=== PATIENT | female | born 1980 | race American Indian/Alaskan Native ===

== ENCOUNTER 2017-01-14 06:40 | Emergency (ER) | payer MEDICAID ==
[2017-01-14 08:10] LABS: Basophils % (Auto) 0.9 % (0.0-1.8); Eosinophils % (Auto) 2.4 % (0.0-4.3); Hemoglobin 11.2 gm/dl (10.1-14.3); Mean Corpuscular HGB Conc 31 % (30-34); Mean Corpuscular Volume 78 fl (79-97); Platelet Count 247 K/mm3 (140-440); Red Cell Distribution Width 16.8 % (13.2-15.2); White Blood Count 8.3 K/mm3 (4.5-11.0)
[2017-01-14 08:21] LABS: Alanine Aminotransferase 21 units/L (7-56); Albumin 3.8 g/dL (3.9-5); Albumin/Globulin Ratio 1.1 %; Alkaline Phosphatase 49 units/L (35-129); Anion Gap 20 mmol/L; Bilirubin,Total 0.2 mg/dL (0.1-1.2); Blood Urea Nitrogen 7 mg/dL (7-17); Calcium 8.9 mg/dL (8.4-10.2); Carbon Dioxide 24 mmol/L (22-30); Chloride 99.3 mmol/L (98-107); Glucose 166 mg/dL (65-100); Lipase 38 units/L (13-60); Potassium 3.6 mmol/L (3.6-5.0); Sodium 140 mmol/L (137-145); Total Protein 7.4 g/dL (6.3-8.2)
[2017-01-14 08:43] LABS: Mean Corpuscular Hemoglobin 25 pg (28-32)
[2017-01-14 08:51] LABS: Bacteria,Urine 4+ /HPF (Negative); Bilirubin,Urine NEG (Negative); Blood,Urine NEG (Negative); Ketones,Urine NEG (Negative); Leukocyte Esterase,Urine MOD (Negative); Mucus,Urine 2+ /HPF; Nitrite,Urine POS (Negative); Urobilinogen,Urine < 2.0 mg/dL (<2.0)
--- NOTE | 2017-01-14 12:53 | Emergency Department Report ---
ED Abdominal Pain HPI - General Chief Complaint: Abdominal Pain Stated Complaint: ABD/BACK PAIN Time Seen by Provider: 01/14/17 12:50 Source: patient Mode of arrival: Ambulatory Limitations: No Limitations - History of Present Illness Initial Comments: The patient complains of abdominal pain of one month's duration. She states it is sometimes associated with nausea but not vomiting. She denies any postprandial component of the pain itself although she does have some fatty food intolerance. She is status post a cholecystectomy. She has had multiple C -sections and a tubal ligation. She denies any recent fever or chills. Patient describes the pain as sharp and predominantly in the right upper quadrant of the abdomen but sometimes in both left and right lower quadrant of the abdomen. She states that she went to [facility] ([place]). She states that she was told she had reflux and prescribed medicine after having a urine test and blood work performed. She denies having any imaging. She states the pain has been sharp and constant for one month. MD Complaint: abdominal pain -: month(s) Location: RUQ Radiation: LLQ, RLQ Migration to: no migration Severity: moderate Quality: aching Consistency: constant Improves With: nothing Worsens With: nothing Associated Symptoms: nausea - Related Data Home Medications Medication Instructions Recorded Confirmed Last Taken Lisinopril/Hydrochlorothiazide 1 tab PO DAILY 02/01/14 08/20/15 08/19/15 08:00 [Zestoretic 20-12.5 mg] Ferrous Sulfate [Feosol] 325 mg PO TID 08/20/15 08/20/15 08/19/15 20:00 Ranitidine HCl [Zantac 150 MG TAB] 150 mg PO BID 08/20/15 08/20/15 08/19/15 20: 00 Previous Rx's Medication Instructions Recorded Last Taken Type Naproxen [Naprosyn TAB] 500 mg PO BID #30 tablet 08/20/15 Unknown Rx Promethazine Dm [Phenergan Dm 5 ml PO Q6H PRN 7 Days 08/20/15 Unknown Rx 6.25/15 mg 5 ml] Ibuprofen [Motrin] 600 mg PO Q8H PRN #20 tablet 12/23/15 Unknown Rx Sulfamethoxazole/Trimethoprim 1 each PO BID #14 tablet 12/23/15 Unknown Rx [Bactrim DS TAB] Nitrofurantoin [place]/M-Cryst 100 mg PO Q12HR #14 capsule 01/27/16 Unknown Rx [Macrobid CAP] Promethazine [Phenergan TAB] 25 mg PO Q6HR PRN #16 tab 01/27/16 Unknown Rx Sulfamethoxazole/Trimethoprim 1 each PO BID #10 tablet 04/02/16 Unknown Rx [Bactrim DS TAB] Ketorolac [Toradol] 10 mg PO Q6H PRN #20 tablet 04/03/16 Unknown Rx Atenolol [Tenormin] 25 mg PO DAILY #30 tab 07/09/16 Unknown Rx predniSONE [Deltasone] 20 mg PO QDAY #5 tab 07/09/16 Unknown Rx Nitrofurantoin [place]/M-Cryst 100 mg PO Q12HR #10 capsule 01/14/17 Unknown Rx [Macrobid CAP] traMADol [Ultram 50 MG tab] 50 mg PO Q4HR PRN #14 tablet 01/14/17 Unknown Rx Allergies Allergy/AdvReac Type Severity Reaction Status Date / Time hydrocodone bitartrate Allergy Rash Verified 01/14/17 13:22 [From Vicodin] lisinopril Allergy Swelling Verified 01/14/17 13:22 tea Allergy Rash Uncoded 02/24/15 10:25 ED Review of Systems ROS: Stated complaint: ABD/BACK PAIN Other details as noted in HPI Constitutional: denies: chills, fever Eyes: denies: eye pain, eye discharge, vision change ENT: denies: ear pain, throat pain Respiratory: denies: cough, shortness of breath, wheezing Cardiovascular: denies: chest pain, palpitations Endocrine: no symptoms reported Gastrointestinal: abdominal pain, nausea. denies: diarrhea Genitourinary: denies: urgency, dysuria, discharge Musculoskeletal: denies: back pain, joint swelling, arthralgia Skin: denies: rash, lesions Neurological: denies: headache, weakness, paresthesias Psychiatric: denies: anxiety, depression Hematological/Lymphatic: denies: easy bleeding, easy bruising ED Past Medical Hx - Past Medical History Previous Medical History?: Yes Hx Hypertension: Yes Hx Diabetes: ("borderline") Hx GERD: Yes Additional medical history: Anemia. HEART MURMUR. TACHYCARDIA. TUBAL LIGATION. Fibromyalgia - Surgical History Past Surgical History?: Yes Hx Cholecystectomy: Yes Additional Surgical History: 4 c sections / one d&c - Social History Smoking Status: Never Smoker Substance Use Type: None - Medications Home Medications: Home Medications Medication Instructions Recorded Confirmed Last Taken Type Lisinopril/Hydrochlorothiazide 1 tab PO DAILY 02/01/14 08/20/15 08/19/15 08:00 History [Zestoretic 20-12.5 mg] Ferrous Sulfate [Feosol] 325 mg PO TID 08/20/15 08/20/15 08/19/15 20:00 History Naproxen [Naprosyn TAB] 500 mg PO BID #30 tablet 08/20/15 Unknown Rx Promethazine Dm [Phenergan Dm 5 ml PO Q6H PRN 7 Days 08/20/15 Unknown Rx 6.25/15 mg 5 ml] Ranitidine HCl [Zantac 150 MG TAB] 150 mg PO BID 08/20/15 08/20/15 08/19/15 20: 00 History Ibuprofen [Motrin] 600 mg PO Q8H PRN #20 tablet 12/23/15 Unknown Rx Sulfamethoxazole/Trimethoprim 1 each PO BID #14 tablet 12/23/15 Unknown Rx [Bactrim DS TAB] Nitrofurantoin [place]/M-Cryst 100 mg PO Q12HR #14 capsule 01/27/16 Unknown Rx [Macrobid CAP] Promethazine [Phenergan TAB] 25 mg PO Q6HR PRN #16 tab 01/27/16 Unknown Rx Sulfamethoxazole/Trimethoprim 1 each PO BID #10 tablet 04/02/16 Unknown Rx [Bactrim DS TAB] Ketorolac [Toradol] 10 mg PO Q6H PRN #20 tablet 04/03/16 Unknown Rx Atenolol [Tenormin] 25 mg PO DAILY #30 tab 07/09/16 Unknown Rx predniSONE [Deltasone] 20 mg PO QDAY #5 tab 07/09/16 Unknown Rx Nitrofurantoin [place]/M-Cryst 100 mg PO Q12HR #10 capsule 01/14/17 Unknown Rx [Macrobid CAP] traMADol [Ultram 50 MG tab] 50 mg PO Q4HR PRN #14 tablet 01/14/17 Unknown Rx ED Physical Exam - General Limitations: No Limitations General appearance: alert, in no apparent distress, obese - Head Head exam: Present: atraumatic, normocephalic - Eye Eye exam: Present: normal appearance. Absent: scleral icterus - ENT ENT exam: Present: mucous membranes moist - Neck Neck exam: Present: normal inspection - Respiratory Respiratory exam: Present: normal lung sounds bilaterally. Absent: respiratory distress - Cardiovascular Cardiovascular Exam: Present: regular rate, normal rhythm. Absent: systolic murmur, diastolic murmur, rubs, gallop - GI/Abdominal GI/Abdominal exam: Present: soft, normal bowel sounds. Absent: distended, tenderness, guarding, rebound, rigid, organomegaly, mass, bruit, pulsatile mass , hernia - Extremities Exam Extremities exam: Present: normal inspection - Back Exam Back exam: Present: normal inspection - Neurological Exam Neurological exam: Present: alert, oriented X3, CN II-XII intact. Absent: motor sensory deficit - Psychiatric Psychiatric exam: Present: normal affect, normal mood - Skin Skin exam: Present: warm, dry, intact, normal color. Absent: rash ED Course Vital Signs 01/14/17 01/14/17 01/14/17 07:14 12:35 12:37 Temperature 98.3 F 98.7 F Pulse Rate 118 H 105 H Respiratory 18 16 Rate Blood Pressure 153/104 Blood Pressure 166/106 [Right] O2 Sat by Pulse 100 100 100 Oximetry 01/14/17 14:07 Temperature Pulse Rate 78 Respiratory Rate Blood Pressure 162/109 Blood Pressure [Right] O2 Sat by Pulse Oximetry - Reevaluation(s) Reevaluation #1: Records indicates that the patient had a CT in 2015. Nothing acute showed up then. The current CT as well shows no acute process. Possible ovarian cysts 01/14/17 16:24 ED Medical Decision Making - Lab Data Result diagrams: 01/14/17 07:35 01/14/17 07:35 Laboratory Results - last 24 hr 01/14/17 01/14/17 01/14/17 07:35 07:35 08:01 WBC 8.3 RBC 4.60 Hgb 11.2 Hct 36.0 MCV 78 L MCH 25 L MCHC 31 RDW 16.8 H Plt Count 247 Lymph % (Auto) 32.8 [place] % (Auto) 8.6 H Eos % (Auto) 2.4 Baso % (Auto) 0.9 Lymph # 2.7 [place] # 0.7 Eos # 0.2 Baso # 0.1 Seg Neutrophils % 55.3 Seg Neutrophils # 4.6 Sodium 140 Potassium 3.6 Chloride 99.3 Carbon Dioxide 24 Anion Gap 20 BUN 7 Creatinine 0.7 Estimated GFR > 60 BUN/Creatinine Ratio 10.00 Glucose 166 H Calcium 8.9 Total Bilirubin 0.2 AST 27 ALT 21 Alkaline Phosphatase 49 Total Protein 7.4 Albumin 3.8 L Albumin/Globulin Ratio 1.1 Lipase 38 Urine Color Yellow Urine Turbidity Cloudy Urine pH 5.0 Ur Specific Dennis 1.018 Urine Protein 30 mg/dl Urine Glucose (UA) Neg Urine Ketones Neg Urine Blood Neg Urine Nitrite Pos Urine Bilirubin Neg Urine Urobilinogen < 2.0 Ur Leukocyte Esterase Mod Urine WBC (Auto) 21.0 H Urine RBC (Auto) 5.0 U Epithel Cells (Auto) 17.0 H Urine Bacteria (Auto) 4+ Urine Mucus 2+ Urine HCG, Qual Negative Critical care attestation.: If time is entered above; I have spent that time in minutes in the direct care of this critically ill patient, excluding procedure time. ED Disposition Clinical Impression: Abdominal pain Qualifiers: Abdominal location: generalized Qualified Code(s): R10.84 - Generalized abdominal pain UTI (urinary tract infection) Qualifiers: Urinary tract infection type: site unspecified Hematuria presence: without hematuria Qualified Code(s): N39.0 - Urinary tract infection, site not specified Ovarian cyst Qualifiers: Laterality: bilateral Qualified Code(s): N83.201 - Unspecified ovarian cyst, right side; N83.202 - Unspecified ovarian cyst, left side Disposition: DISCHARGED TO HOME OR SELFCARE Is pt being admited?: No Does the pt Need Aspirin: No Condition: Stable Instructions: Abdominal Pain (ED), Urinary Tract Infection in Women (ED), Ovarian Cyst (ED) Additional Instructions: Follow-up with a optimization analyst would be recommended. Also he may follow-up with the [facility] clinic. See referrals. Rx antibiotics and vacation for pain. Return any acute change or problem. Prescriptions: Nitrofurantoin [place]/M-Cryst [Macrobid CAP] 100 mg PO Q12HR #10 capsule traMADol [Ultram 50 MG tab] 50 mg PO Q4HR PRN #14 tablet PRN Reason: Pain Referrals: ANA MARIA SOLANO III, [employer] [Primary Care Provider] - 3-5 Days [facility] [Provider Group] - 3-5 Days Time of Disposition: 16:28
[2017-01-14] MEDS ORDERED: NORMODYNE IV ONE (13:03)
[2017-01-14] MEDS ORDERED: NACL ONE ×2 (13:05→14:58)
--- NOTE | 2017-01-14 16:14 | Cat Scan Report ---
FINAL REPORT EXAM: CT ABDOMEN PELVIS W CON HISTORY: ruQ and lower ABD pain TECHNIQUE: CT of the abdomen and pelvis with IV contrast. Coronal and sagittal reconstructed imaging provided. PRIORS: None currently available. FINDINGS: ABDOMEN: Stomach: Unremarkable. Liver: Fatty. No distinct lesions. 25 cm. No abnormal enhancement. Gallbladder: Cholecystectomy. Spleen: Unremarkable. Pancreas: Unremarkable. Adrenals: Unremarkable. Kidneys: Subcentimeter low-attenuation lesion in the inferior left renal cortex is too small to accurately characterize but statistically probably represents a cyst. Symmetrical cortical enhancement and excretion of both kidneys. No distinct abnormal enhancement. No hydronephrosis. There is no abdominal aortic aneurysm. IVC is unremarkable. There is no periaortic or retroperitoneal adenopathy or mass. Mild to moderate stool. Terminal ileum is normal. Appendix is unremarkable. Large and small bowel loops do not demonstrate wall thickening or inflammatory changes. No obstructive pattern. No free air or free fluid. Diastasis recti. Broad-based protrusion with superimposed small fat containing umbilical hernia. No strangulation. PELVIS: Oval-shaped, low attenuation 2.4 cm lesion in the right adnexa may represent an ovary with ovarian cyst. A similar appearing lesion noted on the left side measuring 2.2 cm. Bladder is unremarkable. There is no pelvic mass or adenopathy. Inguinal regions are unremarkable. Bones: No suspicious osseous lesions on this limited examination of the skeleton. Metastatic disease better evaluated with bone scan. IMPRESSION: Fatty enlarged liver. Probable left renal cysts. Possible bilateral ovarian cysts. Further imaging with pelvic ultrasound may be helpful if clinically indicated.
[2017-01-14 17:00] VITALS: BP 144/91
== END 2017-01-14 17:14 | disposition home or self-care (01) ==
LOC: ED 06:40
DX: N39.0 Urinary tract infection, site not specified (principal); N83.201 Unspecified ovarian cyst, right side; I10 Essential (primary) hypertension; K21.9 Gastro-esophageal reflux disease without esophagitis; Z98.51 Tubal ligation status; Z90.49 Acquired absence of other specified parts of digestive tract; Z88.1 Allergy status to other antibiotic agents; Z91.09 Other allergy status, other than to drugs and biological substances; Z88.5 Allergy status to narcotic agent
CPT/HCPCS: 36415; 74177; 80053; 81001; 81025; 83690; 85025; 87086; 96374; 99284; Q9967

== ENCOUNTER 2017-03-02 17:36 | Emergency (ER) | payer MEDICAID ==
[2017-03-02 18:32] LABS: Anion Gap 22 mmol/L; BUN/Creatinine Ratio 13.33; Blood Urea Nitrogen 8 mg/dL (7-17); Carbon Dioxide 26 mmol/L (22-30); Chloride 92.5 mmol/L (98-107); Glucose 147 mg/dL (65-100); Potassium 3.8 mmol/L (3.6-5.0); Sodium 137 mmol/L (137-145)
[2017-03-02] MEDS ORDERED: MORPHINE IV ONE ×2 (19:08→21:10)
--- NOTE | 2017-03-02 19:10 | Emergency Department Report ---
HPI - General Chief Complaint: Chest Pain Time Seen by Provider: 03/02/17 18:48 - HPI HPI: This is a 36-year-old Afro-[place] female who presents to the emergency department, driving himself in to be seen, with complaint of a 2 to three-day history of generalized chest pain, shortness of breath and lower extremity swelling. She has a 1.5 week history of some nausea and abdominal discomfort. Patient presents with very elevated blood pressure and says she is normally compliant but did not take her blood pressure medications today. Her primary care doctor is a Dr. Gardiner but she has not seen them regarding her symptoms. She did not take anything for her symptoms prior to presentation. She has a past medical history of borderline diabetes, GERD, hypertension, anemia, tubal ligation, fibromyalgia. No recent travel or sick contacts at home. She denies any tobacco abuse or illicit drug use. ED Past Medical Hx - Past Medical History Previous Medical History?: Yes Hx Hypertension: Yes Hx Diabetes: Yes ("borderline") Hx GERD: Yes Additional medical history: Anemia. HEART MURMUR. TACHYCARDIA. TUBAL LIGATION. Fibromyalgia - Surgical History Past Surgical History?: Yes Hx Cholecystectomy: Yes Additional Surgical History: 4 c sections / one d&c - Social History Smoking Status: Never Smoker Substance Use Type: Prescribed - Medications Home Medications: Home Medications Medication Instructions Recorded Confirmed Last Taken Type Lisinopril/Hydrochlorothiazide 1 tab PO DAILY 02/01/14 08/20/15 08/19/15 08:00 History [Zestoretic 20-12.5 mg] Ferrous Sulfate [Feosol] 325 mg PO TID 08/20/15 08/20/15 08/19/15 20:00 History Naproxen [Naprosyn TAB] 500 mg PO BID #30 tablet 08/20/15 Unknown Rx Promethazine Dm [Phenergan Dm 5 ml PO Q6H PRN 7 Days 08/20/15 Unknown Rx 6.25/15 mg 5 ml] Ranitidine HCl [Zantac 150 MG TAB] 150 mg PO BID 08/20/15 08/20/15 08/19/15 20: 00 History Ibuprofen [Motrin] 600 mg PO Q8H PRN #20 tablet 12/23/15 Unknown Rx Sulfamethoxazole/Trimethoprim 1 each PO BID #14 tablet 12/23/15 Unknown Rx [Bactrim DS TAB] Nitrofurantoin [place]/M-Cryst 100 mg PO Q12HR #14 capsule 01/27/16 Unknown Rx [Macrobid CAP] Promethazine [Phenergan TAB] 25 mg PO Q6HR PRN #16 tab 01/27/16 Unknown Rx Sulfamethoxazole/Trimethoprim 1 each PO BID #10 tablet 04/02/16 Unknown Rx [Bactrim DS TAB] Ketorolac [Toradol] 10 mg PO Q6H PRN #20 tablet 04/03/16 Unknown Rx Atenolol [Tenormin] 25 mg PO DAILY #30 tab 07/09/16 Unknown Rx predniSONE [Deltasone] 20 mg PO QDAY #5 tab 07/09/16 Unknown Rx Nitrofurantoin [place]/M-Cryst 100 mg PO Q12HR #10 capsule 01/14/17 Unknown Rx [Macrobid CAP] traMADol [Ultram 50 MG tab] 50 mg PO Q4HR PRN #14 tablet 01/14/17 Unknown Rx ED Review of Systems ROS: Stated complaint: CHEST PAIN AND SWOLLEN LEGS Other details as noted in HPI Comment: All other systems reviewed and negative Constitutional: denies: chills, fever Eyes: denies: eye pain, eye discharge, vision change ENT: denies: ear pain, throat pain Respiratory: shortness of breath. denies: cough Cardiovascular: chest pain. denies: edema Gastrointestinal: abdominal pain, nausea. denies: vomiting Genitourinary: denies: urgency, dysuria, discharge Musculoskeletal: denies: back pain, joint swelling, arthralgia Skin: denies: rash, lesions Physical Exam - Physical Exam Vital Signs: Vital Signs 03/02/17 03/02/17 03/02/17 17:48 18:46 18:47 Temperature 98.3 F Pulse Rate 117 H Respiratory 22 Rate Blood Pressure 177/115 O2 Sat by Pulse 100 100 99 Oximetry 03/02/17 03/02/17 18:48 18:56 Temperature Pulse Rate 105 H Respiratory 15 22 Rate Blood Pressure 175/110 O2 Sat by Pulse 97 100 Oximetry Physical Exam: GENERAL: The patient is well-developed well-nourished. HEENT: Normocephalic. Atraumatic. Extraocular motions are intact. Patient has moist mucous membranes. Pupils equal reactive to light bilaterally. NECK: Supple. Trachea is midline. CHEST/LUNGS: Clear to auscultation. There is no respiratory distress noted. HEART/CARDIOVASCULAR: Regular. There is mild tachycardia. There is no gallop rub or murmur. ABDOMEN: Abdomen is soft, nontender. Patient has normal bowel sounds. There is no abdominal distention. Morbidly obese habitus. SKIN: Skin is warm and dry. There is nonpitting swelling of the bilateral lower extremities. NEURO: The patient is awake, alert, and oriented. The patient is cooperative. The patient has no focal neurologic deficits. The patient has normal speech. MUSCULOSKELETAL: There is no tenderness or deformity. There is no limitation range of motion. There is no evidence of acute injury. ED Course Vital Signs 03/02/17 03/02/17 03/02/17 17:48 18:46 18:47 Temperature 98.3 F Pulse Rate 117 H Respiratory 22 Rate Blood Pressure 177/115 O2 Sat by Pulse 100 100 99 Oximetry 03/02/17 03/02/17 18:48 18:56 Temperature Pulse Rate 105 H Respiratory 15 22 Rate Blood Pressure 175/110 O2 Sat by Pulse 97 100 Oximetry ED Medical Decision Making - Lab Data Result diagrams: 03/02/17 19:15 03/02/17 17:57 - EKG Data -: EKG Interpreted by Me EKG shows normal: sinus rhythm, axis, intervals, QRS complexes (Q waves to the septal leads), ST-T waves Rate: tachycardia (110 bpm) - EKG Data When compared to previous EKG there are: previous EKG unavailable Interpretation: other (sinus tachycardia, Q waves to the septal leads) - Radiology Data Radiology results: image reviewed interpreted by me: Chest x-ray did not show any acute process. Heart is normal shape and size. No effusions. No pneumothorax. No signs of pneumonia seen. - Medical Decision Making 36-year-old female presents with a few days of some chest pain, intermittent shortness of breath, lower extremity swelling. Her EKG did not show any signs of ST elevation NV. Chest x-ray did not show any pneumonia, pleural effusions or pneumothorax. Patient's labs were mostly unremarkable including negative troponins 2, a BNP less than 100 and a negative d-dimer. There was no signs of infection. The patient was given some DuoNeb treatment and doses of pain medication. However the patient says that the pain continued to return. For this reason I would consider keeping this patient for at least with her troponin but possibly even admission for cardio consultation. However the patient says that she had to leave emergently for a family emergency. She did have somewhat here to drive her since she was on narcotic pain medication. She understands that if she leaves with this continued chest pain that she may continue to have discomfort, could have underlying coronary artery disease, could have a heart attack, coma, disability or even . Despite the fact the patient says that she has to leave and signed out AGAINST MEDICAL ADVICE. She does know that she is able to return at any point if she changes her mind or if any acute distress. - Differential Diagnosis NV, CHF, PE, costochondritis, pneumonia Critical Care Time: No Critical care attestation.: If time is entered above; I have spent that time in minutes in the direct care of this critically ill patient, excluding procedure time. ED Disposition Clinical Impression: Leg edema Chest pain Qualifiers: Chest pain type: unspecified Qualified Code(s): R07.9 - Chest pain, unspecified Hypertension Qualifiers: Hypertension type: essential hypertension Qualified Code(s): I10 - Essential ( primary) hypertension Disposition: LEFT AGAINST MEDICAL ADVICE Is pt being admited?: No Condition: Stable Instructions: Chest Pain (ED), Leg Edema (ED), Hypertension (ED) Additional Instructions: Please return to the emergency department if you have any continued chest pain or you have any acute distress. I given you a referral for a local chalk machine operator , Dr. Antony. Referrals: ANA MARIA GARDINER III, APRN-BC [Primary Care Provider] - 3-5 Days FABIOLA ANTONY MD [Staff Physician] - 3-5 Days Forms: AMA Form Time of Disposition: 21:44
[2017-03-02 19:26] LABS: Hemoglobin 9.6 gm/dl (10.1-14.3); Mean Corpuscular HGB Conc 32 % (30-34); Mean Corpuscular Hemoglobin 25 pg (28-32); Mean Corpuscular Volume 79 fl (79-97); Platelet Count 128 K/mm3 (140-440); Red Blood Count 3.79 M/mm3 (3.65-5.03); Red Cell Distribution Width 18.6 % (13.2-15.2); White Blood Count 4.3 K/mm3 (4.5-11.0)
[2017-03-02 19:42] LABS: Alanine Aminotransferase 24 units/L (7-56); Albumin 3.6 g/dL (3.9-5); Alkaline Phosphatase 44 units/L (35-129); Bilirubin,Total < 0.20 mg/dL (0.1-1.2); Lipase 28 units/L (13-60); Total Protein 7.1 g/dL (6.3-8.2)
[2017-03-02 19:44] LABS: Bilirubin,Direct < 0.2 mg/dL (0-0.2)
[2017-03-02] MEDS ORDERED: NORMODYNE IV ONE (19:58)
[2017-03-02] MEDS ORDERED: DUONEB 0.5 MG-3 MG/3 ML SOLN IH ONE (19:58)
[2017-03-02 20:09] LABS: Bacteria,Urine 4+ /HPF (Negative); Bilirubin,Urine NEG (Negative); Blood,Urine LG (Negative); Ketones,Urine TR mg/dL (Negative); Leukocyte Esterase,Urine LG (Negative); Mucus,Urine 2+ /HPF; Nitrite,Urine POS (Negative); Urobilinogen,Urine < 2.0 mg/dL (<2.0)
[2017-03-02 20:16] LABS: RBC,Urine > 182.0 /HPF (0.0-6.0); WBC,Urine > 182.0 /HPF (0.0-6.0)
[2017-03-02 20:58] VITALS: BP 150/93
[2017-03-02] MEDS ORDERED: ROCEPHIN/NS 1 GM/50 ML 1 GM/50 ML BAG IV ONE (21:09)
--- NOTE | 2017-03-03 08:30 | XRay Report ---
PORTABLE CHEST INDICATION: Chest pain. COMPARISON: None similar. FINDINGS: Portable, frontal chest radiograph demonstrates normal cardiomediastinal silhouette. Slightly crowded lung markings. No focal consolidation, pleural effusions or CHF. Unremarkable bones. CONCLUSION: No acute disease. Thank you for the opportunity to participate in this patient's care.
== END 2017-03-02 21:59 | disposition left against medical advice (07) ==
LOC: ED 17:36
DX: R60.0 Localized edema (principal); R07.9 Chest pain, unspecified; I10 Essential (primary) hypertension; K21.9 Gastro-esophageal reflux disease without esophagitis; Z98.51 Tubal ligation status; Z90.49 Acquired absence of other specified parts of digestive tract
CPT/HCPCS: 36415; 71010; 80048; 80074; 81001; 83690; 83880; 84484; 85025; 85379; 93005; 93010; 94640; 96365; 96375; 96376; 99285; J0696; J2270

== ENCOUNTER 2017-03-03 19:27 | Emergency (ER) | payer MEDICAID ==
[2017-03-03 19:59] LABS: Basophils % (Auto) 0.6 % (0.0-1.8); Eosinophils % (Auto) 3.4 % (0.0-4.3); Hematocrit 32.9 % (30.3-42.9); Hemoglobin 10.2 gm/dl (10.1-14.3); Mean Corpuscular HGB Conc 31 % (30-34); Mean Corpuscular Volume 80 fl (79-97); Platelet Count 167 K/mm3 (140-440); Red Blood Count 4.12 M/mm3 (3.65-5.03); Red Cell Distribution Width 18.8 % (13.2-15.2); White Blood Count 4.3 K/mm3 (4.5-11.0)
[2017-03-03 20:00] LABS: Mean Corpuscular Hemoglobin 25 pg (28-32)
[2017-03-03 20:07] LABS: INR 1.09 (0.87-1.13)
[2017-03-03 20:08] LABS: Partial Thromboplastin Time 27.3 Sec. (24.2-36.6)
[2017-03-03 20:18] LABS: Anion Gap 24 mmol/L; BUN/Creatinine Ratio 8.57; Blood Urea Nitrogen 6 mg/dL (7-17); Calcium 8.8 mg/dL (8.4-10.2); Carbon Dioxide 23 mmol/L (22-30); Chloride 93.5 mmol/L (98-107); Glucose 280 mg/dL (65-100); Potassium 3.5 mmol/L (3.6-5.0); Sodium 137 mmol/L (137-145)
[2017-03-03] MEDS ORDERED: GLUCOPHAGE PO ONE (21:25)
[2017-03-03] MEDS ORDERED: TORADOL IM ONE (21:25)
[2017-03-03] MEDS ORDERED: VALIUM IM ONE (21:26)
--- NOTE | 2017-03-03 21:29 | Emergency Department Report ---
HPI - General Chief Complaint: Chest Pain Time Seen by Provider: 03/03/17 20:54 - HPI HPI: The patient is a 36-year-old female presents for evaluation of chest pain. The patient reports chest pain for the past 4 days, midsternal in location, 10/10 in severity, aching in quality, exacerbated with movement of the upper body and arms. The patient denies fever, trauma to the chest, neck pain, parasthesias, cough, hemoptysis, palpitations, dizziness, syncope, unilateral leg swelling, calf muscle pain. Patient also denies cocaine or other illicit stimulant use, history of DVT or PE, recent immobilization, recent surgery, recent cancer, or oral contraception use. ED Past Medical Hx - Past Medical History Previous Medical History?: Yes Hx Hypertension: Yes Hx Diabetes: Yes ("borderline") Hx GERD: Yes Additional medical history: Anemia. HEART MURMUR. TACHYCARDIA. TUBAL LIGATION. Fibromyalgia - Surgical History Past Surgical History?: Yes Hx Cholecystectomy: Yes Additional Surgical History: 4 c sections / one d&c - Social History Smoking Status: Never Smoker Substance Use Type: None - Medications Home Medications: Home Medications Medication Instructions Recorded Confirmed Last Taken Type Lisinopril/Hydrochlorothiazide 1 tab PO DAILY 02/01/14 08/20/15 08/19/15 08:00 History [Zestoretic 20-12.5 mg] Ferrous Sulfate [Feosol] 325 mg PO TID 08/20/15 08/20/15 08/19/15 20:00 History Naproxen [Naprosyn TAB] 500 mg PO BID #30 tablet 08/20/15 Unknown Rx Promethazine Dm [Phenergan Dm 5 ml PO Q6H PRN 7 Days 08/20/15 Unknown Rx 6.25/15 mg 5 ml] Ranitidine HCl [Zantac 150 MG TAB] 150 mg PO BID 08/20/15 08/20/15 08/19/15 20: 00 History Ibuprofen [Motrin] 600 mg PO Q8H PRN #20 tablet 12/23/15 Unknown Rx Sulfamethoxazole/Trimethoprim 1 each PO BID #14 tablet 12/23/15 Unknown Rx [Bactrim DS TAB] Nitrofurantoin [place]/M-Cryst 100 mg PO Q12HR #14 capsule 01/27/16 Unknown Rx [Macrobid CAP] Promethazine [Phenergan TAB] 25 mg PO Q6HR PRN #16 tab 01/27/16 Unknown Rx Sulfamethoxazole/Trimethoprim 1 each PO BID #10 tablet 04/02/16 Unknown Rx [Bactrim DS TAB] Ketorolac [Toradol] 10 mg PO Q6H PRN #20 tablet 04/03/16 Unknown Rx predniSONE [Deltasone] 20 mg PO QDAY #5 tab 07/09/16 Unknown Rx Nitrofurantoin [place]/M-Cryst 100 mg PO Q12HR #10 capsule 01/14/17 Unknown Rx [Macrobid CAP] traMADol [Ultram 50 MG tab] 50 mg PO Q4HR PRN #14 tablet 01/14/17 Unknown Rx Atenolol [Tenormin] 25 mg PO DAILY #30 tab 03/03/17 Unknown Rx Hydrochlorothiazide [HCTZ] 25 mg PO QDAY #30 tablet 03/03/17 Unknown Rx Metformin HCl [Glucophage] 500 mg PO QDAY #30 tablet 03/03/17 Unknown Rx ED Review of Systems ROS: Stated complaint: CP/STEWART/BILATERAL FOOT/LEG EDEMA Other details as noted in HPI Constitutional: denies: fever ENT: denies: throat or neck pain Respiratory: denies: cough, shortness of breath Cardiovascular: reports chest pain Endocrine: denies unexplained weight loss or gain Gastrointestinal: denies: abdominal pain, nausea Genitourinary: denies: dysuria Musculoskeletal: denies: leg swelling Skin: denies: rash Neurological: denies: headache Hematological/Lymphatic: denies: easy bleeding or easy bruising Psych: denies sadness or hopelessness Physical Exam - Physical Exam Vital Signs: Vital Signs 03/03/17 03/03/17 19:38 21:15 Temperature 98.3 F Pulse Rate 113 H 109 H Respiratory 18 12 Rate Blood Pressure 154/96 Blood Pressure 152/97 [Left] O2 Sat by Pulse 98 99 Oximetry Physical Exam: General: well-nourished, well-developed, no acute distress Head: Normocephalic, atraumatic Eyes: normal sclera ENT: Mucous membranes are pale and dry Neck: trachea midline, neck supple, No neck stiffness, no cervical adenopathy Respiratory: Breath sounds equal bilaterally, no wheezing, rales, or rhonchi Cardio: S1 and S2 present, no murmurs, rubs, gallops, capillary refill is delayed Abdomen: Normoactive bowel sounds, soft abdomen, no rigidity, no guarding or rebound tenderness Chest WALL/Back: No tenderness to palpation of the chest wall, no CVA tenderness with percussion Musc: No pitting edema Skin: No rash Neuro: no facial drooping, normal speech Psych: Normal affect ED Course Vital Signs 03/03/17 03/03/17 19:38 21:15 Temperature 98.3 F Pulse Rate 113 H 109 H Respiratory 18 12 Rate Blood Pressure 154/96 Blood Pressure 152/97 [Left] O2 Sat by Pulse 98 99 Oximetry ED Medical Decision Making - Lab Data Result diagrams: 03/03/17 19:48 03/03/17 19:48 - Medical Decision Making The patient was seen and examined by myself. The patient is placed on a phototypesetting equipment monitor and continuous pulse ox. On initial evaluation, the patient was found to be in no distress. EKG was negative for findings suggestive of acute cardiac infarct. The patient given IM Toradol for pain. Labs and imaging are obtained. Chest x-ray is negative for pneumothorax, focal consolidation, pulmonary vascular congestion, pleural effusion, or other obvious acute cardiopulmonary disease process. Lab results revealed elevated glucose level of 280, and otherwise labs were unremarkable including levels of troponin, WBC, hemoglobin, hematocrit, electrolytes, renal function. The patient given a tablet of metformin for her elevated blood sugar and 1 L normal saline fluid bolus for treatment of dehydration. Medical records are reviewed and revealed that the patient was found to have a negative d-dimer level on evaluation here in this emergency department for same complaints yesterday. The patient was reevaluated and reported that their symptoms were markedly improved. As the patient has a MADDY risk score less than 2, and a negative d-dimer with well's score less than 2, the patient is at low risk of ACS or pulmonary emboli etiology of their symptoms. The patient is stable for discharge with outpatient follow-up. The patient is given follow-up and return instructions. The patient expressed understanding and agreed with the plan. The patient is discharged in stable condition. Critical care attestation.: If time is entered above; I have spent that time in minutes in the direct care of this critically ill patient, excluding procedure time. ED Disposition Clinical Impression: Acute chest pain, Acute hyperglycemia, Dehydration, Diabetes mellitus, new onset, Acute hyperglycemia Disposition: DISCHARGED TO HOME OR SELFCARE Is pt being admited?: No Does the pt Need Aspirin: No Condition: Stable Instructions: Chest Pain (ED), Hypertension (ED), Diabetic Hyperglycemia (ED) Prescriptions: Atenolol [Tenormin] 25 mg PO DAILY #30 tab Hydrochlorothiazide [HCTZ] 25 mg PO QDAY #30 tablet Metformin HCl [Glucophage] 500 mg PO QDAY #30 tablet Referrals: ANA MARIA SOLANO III, KAMALJIT-SONIA [Primary Care Provider] - 3-5 Days Time of Disposition: 21:27
[2017-03-03] MEDS ORDERED: NORMODYNE IV ONE (23:07)
[2017-03-03] MEDS ORDERED: NACL 0.9% 1000 ML 1,000 ML IV ONE (23:10)
[2017-03-03 23:22] VITALS: BP 147/95
== END 2017-03-03 23:49 | disposition home or self-care (01) ==
LOC: ED 19:27
DX: E11.65 Type 2 diabetes mellitus with hyperglycemia (principal); R07.89 Other chest pain; E86.0 Dehydration; I10 Essential (primary) hypertension; K21.9 Gastro-esophageal reflux disease without esophagitis
CPT/HCPCS: 36415; 80048; 84484; 84703; 85025; 85610; 85730; 93005; 93010; 96361; 96372; 96374; 99284; J1885; J3360; J7030

== ENCOUNTER 2017-06-18 18:55 | Emergency (ER) | payer MEDICAID ==
[2017-06-18] MEDS ORDERED: TYLENOL PO ONE (19:46)
[2017-06-18] MEDS ORDERED: TYLENOL ONE (19:47)
[2017-06-18] MEDS ORDERED: TENORMIN PO ONE (19:52)
[2017-06-18 20:21] LABS: Basophils % (Auto) 0.5 % (0.0-1.8); Eosinophils % (Auto) 0.1 % (0.0-4.3); Mean Corpuscular HGB Conc 31 % (30-34); Mean Corpuscular Volume 83 fl (79-97); Platelet Count 282 K/mm3 (140-440); Red Blood Count 5.32 M/mm3 (3.65-5.03); Red Cell Distribution Width 16.4 % (13.2-15.2); White Blood Count 15.5 K/mm3 (4.5-11.0)
[2017-06-18 20:25] LABS: Hematocrit 44.4 % (30.3-42.9); Hemoglobin 13.8 gm/dl (10.1-14.3); Mean Corpuscular Hemoglobin 26 pg (28-32)
[2017-06-18 20:35] LABS: Anion Gap 22 mmol/L; Blood Urea Nitrogen 6 mg/dL (7-17); Calcium 9.6 mg/dL (8.4-10.2); Carbon Dioxide 27 mmol/L (22-30); Chloride 92.7 mmol/L (98-107); Glucose 111 mg/dL (65-100); Potassium 3.6 mmol/L (3.6-5.0); Sodium 138 mmol/L (137-145)
--- NOTE | 2017-06-18 20:49 | XRay Report ---
FINAL REPORT EXAM: XR CHEST ROUTINE 2V HISTORY: Shortness of breath COMPARISON: None available. FINDINGS:: Frontal and lateral views of the chest obtained. Cardiac silhouette is within normal limits. No focal consolidation or effusion. No pneumothorax. Visualized bony thorax is grossly intact. IMPRESSION:: No acute findings.
[2017-06-18] MEDS ORDERED: THALITONE PO ONE (20:52)
[2017-06-18] MEDS ORDERED: DECADRON IV ONE (22:58)
[2017-06-18] MEDS ORDERED: NACL 0.9% 500 ML 500 ML IV ONE (22:58)
[2017-06-18] MEDS ORDERED: TORADOL IV ONE (22:58)
--- NOTE | 2017-06-18 22:58 | Emergency Department Report ---
ED General Adult HPI - General Chief complaint: Dyspnea/Respdistress Stated complaint: STEWART Time Seen by Provider: 06/18/17 22:45 Source: patient, EMS (ems notes not available at time of chart dictation), old records reviewed Mode of arrival: Ambulatory Limitations: No Limitations - History of Present Illness Initial comments: This is a 36-year-old female, the patient is previously unknown to me, reports a past medical history of diabetes, hypertension and obesity. Patient presents to the ER with a primary complaint of left sided neck pain, left submandibular pain, left cheek pain, which is been going on for the past few days. The pain is sharp and constant. It increases with palpation, and decreases with rest. Patient thinks that she has an abscessed tooth on the left side of her mouth. There is no stridor or dysphonia, there is mild trismus. The patient also mentions central chest pressure, which started at 2:00 PM on the preceding day, which is constant, and it does not radiate to the back, arms or neck. There is no diaphoresis, there is no vomiting, patient denies posterior leg pain, posterior leg swelling, recent trips greater than 4 hours, recent hospital admissions. She does not take control tablets, there is no posterior leg pain, there is no posterior leg swelling. The patient reports no recent aspirin use, no recent cocaine use. The patient ALSO describes bilateral intermittent hip numbness, which does not radiate distal, anxious on have exacerbating or relieving factors. However, her primary complaint is left-sided neck pain and facial pain. -: Gradual Location: face, neck, chest, left, right, lower extremity Severity scale (0 -10): 10 Quality: aching Consistency: other (as per history of present illness) Improves with: other (as per history of present illness) Worsens with: other (as per history of present illness) - Related Data Home Medications Medication Instructions Recorded Confirmed Last Taken Lisinopril/Hydrochlorothiazide 1 tab PO DAILY 02/01/14 08/20/15 08/19/15 08:00 [Zestoretic 20-12.5 mg] Ferrous Sulfate [Feosol] 325 mg PO TID 08/20/15 08/20/15 08/19/15 20:00 Ranitidine HCl [Zantac 150 MG TAB] 150 mg PO BID 08/20/15 08/20/15 08/19/15 20: 00 Previous Rx's Medication Instructions Recorded Last Taken Type Naproxen [Naprosyn TAB] 500 mg PO BID #30 tablet 08/20/15 Unknown Rx Promethazine Dm [Phenergan Dm 5 ml PO Q6H PRN 7 Days 08/20/15 Unknown Rx 6.25/15 mg 5 ml] Ibuprofen [Motrin] 600 mg PO Q8H PRN #20 tablet 12/23/15 Unknown Rx Sulfamethoxazole/Trimethoprim 1 each PO BID #14 tablet 12/23/15 Unknown Rx [Bactrim DS TAB] Nitrofurantoin [place]/M-Cryst 100 mg PO Q12HR #14 capsule 01/27/16 Unknown Rx [Macrobid CAP] Promethazine [Phenergan TAB] 25 mg PO Q6HR PRN #16 tab 01/27/16 Unknown Rx Sulfamethoxazole/Trimethoprim 1 each PO BID #10 tablet 04/02/16 Unknown Rx [Bactrim DS TAB] Ketorolac [Toradol] 10 mg PO Q6H PRN #20 tablet 04/03/16 Unknown Rx predniSONE [Deltasone] 20 mg PO QDAY #5 tab 07/09/16 Unknown Rx Nitrofurantoin [place]/M-Cryst 100 mg PO Q12HR #10 capsule 01/14/17 Unknown Rx [Macrobid CAP] traMADol [Ultram 50 MG tab] 50 mg PO Q4HR PRN #14 tablet 01/14/17 Unknown Rx Atenolol [Tenormin] 25 mg PO DAILY #30 tab 03/03/17 Unknown Rx Cyclobenzaprine HCl [Flexeril 5 MG 5 mg PO Q8HR PRN #12 tab 03/03/17 Unknown Rx TAB] Hydrochlorothiazide [HCTZ] 25 mg PO QDAY #30 tablet 03/03/17 Unknown Rx Metformin HCl [Glucophage] 500 mg PO QDAY #30 tablet 03/03/17 Unknown Rx Allergies Allergy/AdvReac Type Severity Reaction Status Date / Time hydrocodone bitartrate Allergy Rash Verified 01/14/17 13:22 [From Vicodin] lisinopril Allergy Swelling Verified 01/14/17 13:22 tea Allergy Rash Uncoded 02/24/15 10:25 ED Review of Systems ROS: Stated complaint: STEWART Other details as noted in HPI Constitutional: malaise ENT: throat pain, congestion Respiratory: shortness of breath (chronic shortness of breath, this is not new, worsening or different) Cardiovascular: denies: chest pain Gastrointestinal: denies: abdominal pain Musculoskeletal: arthralgia Skin: denies: lesions Neurological: weakness, paresthesias Psychiatric: denies: depression ED Past Medical Hx - Past Medical History Previous Medical History?: Yes Hx Hypertension: Yes Hx Diabetes: Yes ("borderline") Hx GERD: Yes Additional medical history: Anemia. HEART MURMUR. TACHYCARDIA. TUBAL LIGATION. Fibromyalgia - Surgical History Hx Cholecystectomy: Yes Additional Surgical History: 4 c sections / one d&c - Social History Smoking Status: Never Smoker - Medications Home Medications: Home Medications Medication Instructions Recorded Confirmed Last Taken Type Lisinopril/Hydrochlorothiazide 1 tab PO DAILY 02/01/14 08/20/15 08/19/15 08:00 History [Zestoretic 20-12.5 mg] Ferrous Sulfate [Feosol] 325 mg PO TID 08/20/15 08/20/15 08/19/15 20:00 History Naproxen [Naprosyn TAB] 500 mg PO BID #30 tablet 08/20/15 Unknown Rx Promethazine Dm [Phenergan Dm 5 ml PO Q6H PRN 7 Days 08/20/15 Unknown Rx 6.25/15 mg 5 ml] Ranitidine HCl [Zantac 150 MG TAB] 150 mg PO BID 08/20/15 08/20/15 08/19/15 20: 00 History Ibuprofen [Motrin] 600 mg PO Q8H PRN #20 tablet 12/23/15 Unknown Rx Sulfamethoxazole/Trimethoprim 1 each PO BID #14 tablet 12/23/15 Unknown Rx [Bactrim DS TAB] Nitrofurantoin [place]/M-Cryst 100 mg PO Q12HR #14 capsule 01/27/16 Unknown Rx [Macrobid CAP] Promethazine [Phenergan TAB] 25 mg PO Q6HR PRN #16 tab 01/27/16 Unknown Rx Sulfamethoxazole/Trimethoprim 1 each PO BID #10 tablet 04/02/16 Unknown Rx [Bactrim DS TAB] Ketorolac [Toradol] 10 mg PO Q6H PRN #20 tablet 04/03/16 Unknown Rx predniSONE [Deltasone] 20 mg PO QDAY #5 tab 07/09/16 Unknown Rx Nitrofurantoin [place]/M-Cryst 100 mg PO Q12HR #10 capsule 01/14/17 Unknown Rx [Macrobid CAP] traMADol [Ultram 50 MG tab] 50 mg PO Q4HR PRN #14 tablet 01/14/17 Unknown Rx Atenolol [Tenormin] 25 mg PO DAILY #30 tab 03/03/17 Unknown Rx Cyclobenzaprine HCl [Flexeril 5 MG 5 mg PO Q8HR PRN #12 tab 03/03/17 Unknown Rx TAB] Hydrochlorothiazide [HCTZ] 25 mg PO QDAY #30 tablet 03/03/17 Unknown Rx Metformin HCl [Glucophage] 500 mg PO QDAY #30 tablet 03/03/17 Unknown Rx ED Physical Exam - General Limitations: No Limitations General appearance: alert, in no apparent distress, obese - Head Head exam: Present: atraumatic, normocephalic - Eye Eye exam: Present: normal appearance, EOMI - ENT ENT exam: Present: normal orophraynx, TM's normal bilaterally, normal external ear exam, other (there is no mastoid tenderness. There is no obvious trismus. There is no stridor. The patient is speaking in full sentences. Patient is quite obese, the posterior hypopharynx and uvula are not able to be visualized secondary to her obesity and body habitus. There is left-sided carotid tenderness. There is left-sided submandibular tenderness.) - Neck Neck exam: Present: normal inspection, full ROM, lymphadenopathy. Absent: tenderness, meningismus - Respiratory Respiratory exam: Present: normal lung sounds bilaterally. Absent: respiratory distress, wheezes, rales, rhonchi, stridor, chest wall tenderness, accessory muscle use, decreased breath sounds, prolonged expiratory - Cardiovascular Cardiovascular Exam: Present: normal rhythm, tachycardia, normal heart sounds. Absent: systolic murmur, diastolic murmur, rubs, gallop - GI/Abdominal GI/Abdominal exam: Present: soft, normal bowel sounds. Absent: distended, tenderness, guarding, rebound, rigid, pulsatile mass - Extremities Exam Extremities exam: Present: normal inspection, full ROM, normal capillary refill. Absent: pedal edema, joint swelling, calf tenderness - Back Exam Back exam: Present: normal inspection, full ROM. Absent: tenderness, CVA tenderness (R), CVA tenderness (L), muscle spasm, paraspinal tenderness, vertebral tenderness - Neurological Exam Neurological exam: Present: alert, oriented X3, normal gait, other (Extraocular movements intact. Tongue midline. No facial droop. Facial sensation intact to light touch in the V1, V2, V3 distribution bilaterally. 5 and 5 strength in 4 extremities.. Sensation is intact to light touch in 4 extremities.). Absent : motor sensory deficit - Psychiatric Psychiatric exam: Present: normal affect, normal mood - Skin Skin exam: Present: warm, dry, intact, normal color. Absent: rash ED Course Vital Signs 06/18/17 06/18/17 06/18/17 19:28 19:49 20:02 Temperature 99.7 F H Pulse Rate 120 H 120 H Respiratory 20 20 Rate Blood Pressure 183/118 183/118 O2 Sat by Pulse 100 Oximetry 06/18/17 06/18/17 06/18/17 21:21 21:30 21:45 Temperature Pulse Rate 122 H 111 H 110 H Respiratory 22 18 19 Rate Blood Pressure 172/110 159/108 O2 Sat by Pulse 100 98 98 Oximetry 06/18/17 06/18/17 06/18/17 22:00 22:08 22:15 Temperature Pulse Rate 109 H 112 H 108 H Respiratory 17 21 17 Rate Blood Pressure 171/106 171/106 158/91 O2 Sat by Pulse 98 98 98 Oximetry 06/18/17 06/18/17 06/18/17 22:27 22:30 22:45 Temperature Pulse Rate 109 H 105 H 102 H Respiratory 14 10 L 15 Rate Blood Pressure 171/106 161/89 149/86 O2 Sat by Pulse 100 98 99 Oximetry 06/18/17 06/18/17 06/18/17 23:00 23:15 23:30 Temperature Pulse Rate 101 H 91 H 93 H Respiratory 15 14 16 Rate Blood Pressure 159/100 171/102 176/99 O2 Sat by Pulse 98 99 100 Oximetry 06/18/17 06/19/17 06/19/17 23:45 00:01 00:15 Temperature Pulse Rate 97 H 95 H 93 H Respiratory 15 14 14 Rate Blood Pressure 154/88 154/88 154/88 O2 Sat by Pulse 98 98 97 Oximetry 06/19/17 06/19/17 06/19/17 00:31 00:45 01:01 Temperature Pulse Rate 91 H 95 H 91 H Respiratory 14 14 14 Rate Blood Pressure 154/88 154/88 154/88 O2 Sat by Pulse 98 99 98 Oximetry 06/19/17 06/19/17 06/19/17 01:15 01:59 02:00 Temperature Pulse Rate 90 91 H Respiratory 14 17 Rate Blood Pressure 154/88 154/88 161/92 O2 Sat by Pulse 97 98 98 Oximetry 06/19/17 06/19/17 06/19/17 02:15 02:30 02:45 Temperature Pulse Rate 89 87 90 Respiratory 15 14 12 Rate Blood Pressure 144/84 154/91 141/76 O2 Sat by Pulse 99 99 98 Oximetry 06/19/17 06/19/17 06/19/17 03:00 03:15 03:30 Temperature Pulse Rate 88 91 H 88 Respiratory 13 15 14 Rate Blood Pressure 147/85 151/87 161/68 O2 Sat by Pulse 98 98 96 Oximetry 06/19/17 06/19/17 06/19/17 03:45 04:00 04:15 Temperature Pulse Rate 91 H 95 H 92 H Respiratory 11 L 16 14 Rate Blood Pressure 148/76 133/76 139/72 O2 Sat by Pulse 99 100 99 Oximetry 06/19/17 06/19/17 06/19/17 04:30 04:45 05:00 Temperature Pulse Rate 91 H 84 91 H Respiratory 16 15 14 Rate Blood Pressure 127/84 151/87 153/88 O2 Sat by Pulse 97 98 96 Oximetry 06/19/17 06/19/17 06/19/17 05:15 05:30 05:45 Temperature Pulse Rate 86 88 92 H Respiratory 15 13 16 Rate Blood Pressure 149/80 148/88 142/91 O2 Sat by Pulse 98 99 98 Oximetry - Reevaluation(s) Reevaluation #1: 06/19/17 01:40 Differential diagnosis: Dentalgia, dental abscess, deep space neck infection, pneumonia, mediastinal infection, acute coronary syndrome Assessment and plan: 36-year-old female with a primary complaint of left-sided neck pain, facial pain. Low-grade temperature, tachycardic and hypertensive. Patient protecting her airway and tolerating liquid feeds. She will be treated empirically with acetaminophen, steroids, Toradol. CT scan of the neck is pending. X-ray of the chest is negative. No pulmonary embolus or DVT risk factors, low risk by well's criteria. Troponin negative 2, EKG unchanged 2, low risk by MADDY score, low risk by Heart score Reevaluation #2: 06/19/17 01:57 Care is transferred to the overnight physician, Dr. Davis, who will follow-up on the CT scan of the neck. Disposition pending and will be determined by CT scan results. Reevaluation #3: 06/19/17 03:[address] [facility] accepts as an er to er transfer for ent consultation as this hospital does not have ent or omfs available for consultation ED Medical Decision Making - Lab Data Result diagrams: 06/18/17 20:01 06/18/17 20:01 Vital Signs 06/18/17 06/18/17 06/18/17 19:28 19:49 20:02 Temperature 99.7 F H Pulse Rate 120 H 120 H Respiratory 20 20 Rate Blood Pressure 183/118 183/118 O2 Sat by Pulse 100 Oximetry 06/18/17 06/18/17 06/18/17 21:21 21:30 21:45 Temperature Pulse Rate 122 H 111 H 110 H Respiratory 22 18 19 Rate Blood Pressure 172/110 159/108 O2 Sat by Pulse 100 98 98 Oximetry 06/18/17 06/18/17 22:00 22:15 Temperature Pulse Rate 109 H 108 H Respiratory 17 17 Rate Blood Pressure 171/106 158/91 O2 Sat by Pulse 98 98 Oximetry Lab Results 06/18/17 06/18/17 06/18/17 Range/Units 20:01 20:01 20:01 WBC 15.5 H (4.5-11.0) K/mm3 RBC 5.32 H (3.65-5.03) M/mm3 Hgb 13.8 (10.1-14.3) gm/dl Hct 44.4 H (30.3-42.9) % MCV 83 (79-97) fl MCH 26 L (28-32) pg MCHC 31 (30-34) % RDW 16.4 H (13.2-15.2) % Plt Count 282 (140-440) K/mm3 Lymph % (Auto) 11.3 L (13.4-35.0) % [place] % (Auto) 7.0 (0.0-7.3) % Eos % (Auto) 0.1 (0.0-4.3) % Baso % (Auto) 0.5 (0.0-1.8) % Lymph # 1.8 (1.2-5.4) K/mm3 [place] # 1.1 H (0.0-0.8) K/mm3 Eos # 0.0 (0.0-0.4) K/mm3 Baso # 0.1 (0.0-0.1) K/mm3 Seg Neutrophils % 81.1 H (40.0-70.0) % Seg Neutrophils # 12.6 H (1.8-7.7) K/mm3 Sodium 138 (137-145) mmol/L Potassium 3.6 (3.6-5.0) mmol/L Chloride 92.7 L (98-107) mmol/L Carbon Dioxide 27 (22-30) mmol/L Anion Gap 22 mmol/L BUN 6 L (7-17) mg/dL Creatinine 0.6 L (0.7-1.2) mg/dL Estimated GFR > 60 ml/min BUN/Creatinine Ratio 10.00 % Glucose 111 H (65-100) mg/dL Calcium 9.6 (8.4-10.2) mg/dL Troponin T < 0.010 (0.00-0.029) ng/mL HCG, Qual Negative (Negative) 06/18/17 Range/Units 23:48 WBC (4.5-11.0) K/mm3 RBC (3.65-5.03) M/mm3 Hgb (10.1-14.3) gm/dl Hct (30.3-42.9) % MCV (79-97) fl MCH (28-32) pg MCHC (30-34) % RDW (13.2-15.2) % Plt Count (140-440) K/mm3 Lymph % (Auto) (13.4-35.0) % [place] % (Auto) (0.0-7.3) % Eos % (Auto) (0.0-4.3) % Baso % (Auto) (0.0-1.8) % Lymph # (1.2-5.4) K/mm3 [place] # (0.0-0.8) K/mm3 Eos # (0.0-0.4) K/mm3 Baso # (0.0-0.1) K/mm3 Seg Neutrophils % (40.0-70.0) % Seg Neutrophils # (1.8-7.7) K/mm3 Sodium (137-145) mmol/L Potassium (3.6-5.0) mmol/L Chloride (98-107) mmol/L Carbon Dioxide (22-30) mmol/L Anion Gap mmol/L BUN (7-17) mg/dL Creatinine (0.7-1.2) mg/dL Estimated GFR ml/min BUN/Creatinine Ratio % Glucose (65-100) mg/dL Calcium (8.4-10.2) mg/dL Troponin T < 0.010 (0.00-0.029) ng/mL HCG, Qual (Negative) - EKG Data -: EKG Interpreted by Me - EKG Data 06/19/17 01:41 EKG #1 demonstrated sinus tachycardia, normal axis, poor R-wave progression, abnormal EKG, not consistent with STEMI EKG #2 demonstrates sinus tachycardia, left axis deviation, motion artifact, poor R wave progression, not consistent with STEMI - Radiology Data Radiology results: pending, image reviewed Critical care attestation.: If time is entered above; I have spent that time in minutes in the direct care of this critically ill patient, excluding procedure time. ED Disposition Clinical Impression: SIRS (systemic inflammatory response syndrome), Neck pain [facility] IP Is pt being admited?: No Does the pt Need Aspirin: No Condition: Stable Referrals: ANA MARIA SOLANO III, AEROSPACE TECHNICIAN-BC [Primary Care Provider] - 3-5 Days
[2017-06-19] MEDS ORDERED: NACL ONE (00:41)
[2017-06-19] MEDS ORDERED: NACL 0.9% 1000 ML 1,000 ML IV ONE (01:33)
--- NOTE | 2017-06-19 02:12 | Cat Scan Report ---
FINAL REPORT EXAM: CT NECK W CON HISTORY: neck pain and swelling COMPARISON: None available. TECHNIQUE: Contiguous axial images were obtained. Additional sagittal and coronal reformatted images were obtained. Administration of IV contrast given per institution protocol. Images submitted for interpretation. FINDINGS: Enlargement and heterogeneous enhancement of the left pterygoid musculature. There is fat stranding of the adjacent parapharyngeal fat pad. No definable abscess. There is mild deviation of the left palatine tonsil medially. Inflammatory changes appear to be primary to the house repairer space rather than left palatine tonsil. There is mild heterogeneous enhancement and edematous changes of the left palatine tonsil left hypopharynx. The adjacent left mandible and maxilla are intact. No cortical defect to suggest definable dental abscess at the time. There is multiple absent teeth and dental caries. True vocal cords are symmetric. Thyroid gland is unremarkable. Mild secondary inflammation of the left submandibular gland adjacent to the house repairer space. Fatty atrophy of the parotid glands. There are prominent but technically not enlarged level 2 a lymph nodes suspected to be reactive. For example there is a left level IIa lymph node measuring 1.9 x 1.3 centimeters. Adjacent to this there is a 1.7 x 1.0 centimeter lymph node. Great arterial vessels of the neck are patent. Lung apices are clear. No significant bony encroachment on the canal or foramen of the cervical spine. Prominent retention cyst or polyp at the floor left maxillary sinus. Small amount of frothy material right sphenoid sinus and mild polypoid mucosal thickening floor the right maxillary sinus. Mastoid air cells are clear. IMPRESSION: Inflammatory changes involving the left house repairer space and left palatine tonsil. There is heterogeneous enhancement of the left pterygoid musculature, heterogeneous enhancement and edematous changes left palatine tonsil and left hypopharynx and mild secondary inflammation of the adjacent left submandibular gland. No definable abscess. Source of primary infection is uncertain. No definite associated dental abscess. The multiple dental caries and missing teeth. Borderline enlarged left level 2 a lymph nodes, likely reactive.
[2017-06-19] MEDS ORDERED: CLEOCIN 600 MG/50 mL 600 MG/50 ML BAG IV ONE (02:16)
[2017-06-19 06:03] VITALS: BP 142/91
== END 2017-06-19 06:03 | disposition short-term general hospital (02) ==
LOC: ED 18:55
DX: R65.10 Systemic inflammatory response syndrome (SIRS) of non-infectious origin without acute organ dysfunction (principal); M54.2 Cervicalgia; E11.9 Type 2 diabetes mellitus without complications; I10 Essential (primary) hypertension; Z88.8 Allergy status to other drugs, medicaments and biological substances
CPT/HCPCS: 36415; 70491; 71020; 80048; 84484; 84703; 85025; 93005; 93010; 96365; 96375; 99285; J1100; J1885; J7030; J7040; Q9967

== ENCOUNTER 2017-10-31 12:30 | Emergency (ER) | payer MEDICAID | END 2017-10-31 16:00 | disposition left against medical advice (07) | LOC: ED 12:30 | DX: R07.89 Other chest pain (principal); Z53.21 Procedure and treatment not carried out due to patient leaving prior to being seen by health care provider ==

== ENCOUNTER 2021-02-01 11:00 | Outpatient (CLI) | payer MEDICAID | END 2021-02-01 11:01 | disposition home or self-care (01) | LOC: SLR 11:00 | PROVIDERS: ATTEND Internal Medicine | DX: G47.30 Sleep apnea, unspecified (principal) | CPT/HCPCS: 95811 ==